=== PATIENT | male | born 1990 | race African-American/Black ===

== ENCOUNTER 2019-04-20 11:14 | Emergency (ER) | payer BC, OTHER ==
[~2019-04-20] VITALS: Ht 177.8 cm; Wt 104.0 kg
[2019-04-20 11:33] VITALS: BP 132/79
[2019-04-20] MEDS ORDERED: TETANUS, DIPHTHERIA, PERTUSSIS VAC/PF 0.5ML (>7YR OLD) IM ONE (14:00)
== END 2019-04-20 15:00 | disposition home or self-care (01) ==
LOC: ER 14:45
DX: S61.216A Laceration without foreign body of right little finger without damage to nail, initial encounter (principal); W26.0XXA Contact with knife, initial encounter; Y93.G3 Activity, cooking and baking; Y92.010 Kitchen of single-family (private) house as the place of occurrence of the external cause; Z23 Encounter for immunization
CPT/HCPCS: 12001; 73140; 90471; 90715; 99283; Z7610

== ENCOUNTER 2019-12-10 19:14 | Inpatient (IN) | payer SELFPAY ==
[~2019-12-10] VITALS: Ht 154.7 cm; Wt 108.4 kg
[2019-12-10] MEDS ORDERED: ONDANSETRON HCL 4MG/2ML INJ IV STA (19:22)
[2019-12-10] MEDS ORDERED: MORPHINE SULFATE 4 MG/ML CPJ (NOT FOR IM USE) IV STA (19:22)
[2019-12-10] MEDS ORDERED: MORPHINE SULFATE 4 MG/ML CPJ (NOT FOR IM USE) IV ONE ×2 (19:26→20:30)
[2019-12-10] MEDS ORDERED: LORAZEPAM 2MG/ML CPJ IV ONE (19:30)
[2019-12-10] MEDS ORDERED: KETAMINE HCL 50 MG/ML 10ML IV ONE (20:30)
[2019-12-10] MEDS ORDERED: PROPOFOL 200MG/20ML VIAL IV ONE (20:30)
[2019-12-10 20:31] LABS: BASOPHILS % 0.8 % (0.0-2.0); EOSINOPHILS % 2.9 % (0.0-5.0); HEMATOCRIT. 44.5 % (42.0-52.0); HEMOGLOBIN. 15.1 g/dL (14.0-18.0); LYMPHOCYTES % 38.8 % (20.0-50.0); MEAN CORPUSCULAR HEMOGLOBIN 30.4 pg (28.0-32.0); MEAN CORPUSCULAR VOLUME 89.7 fL (80.0-94.0); MEAN PLATELET VOLUME 6.7 fl (7.4-10.4); MONOCYTES % 8.5 % (2.0-8.0); PLATELET 318 x1000/uL (130-400); RED BLOOD CELL COUNT 4.96 mill/uL (4.7-6.1); RED CELL DISTRIBUTION WIDTH 13.3 % (11.6-14.6)
[2019-12-10 20:35] LABS: CHLORIDE 109 mEq/L (98-107)
[2019-12-10 20:38] LABS: PROTHROMBIN TIME 10.7 sec (9.6-11.0)
[2019-12-10] MEDS ORDERED: POTASSIUM CHLORIDE 20MEQ TABLET SR PO NR (21:15)
[2019-12-10] MEDS ORDERED: TETANUS, DIPHTHERIA, PERTUSSIS VAC/PF 0.5ML (>7YR OLD) IM ONE (21:15)
[2019-12-10] MEDS ORDERED: ONDANSETRON HCL 4MG/2ML INJ IV PRN (23:15)
[2019-12-10] MEDS ORDERED: IPRATROPIUM/ALBUTEROL 0.5-3(2.5)MG/3ML NEB NEB PRN (23:15)
[2019-12-10] MEDS ORDERED: CLONIDINE 0.1MG TABLET PO PRN (23:15)
[2019-12-10] MEDS ORDERED: DOCUSATE SODIUM 100MG CAPSULE PO PRN (23:15)
[2019-12-10] MEDS ORDERED: ENOXAPARIN 40MG/0.4ML SYR SUBCUT SCH (23:15)
[2019-12-10] MEDS ORDERED: ACETAMINOPHEN 325MG TABLET PO PRN (23:15)
[2019-12-10] MEDS ORDERED: MAGNESIUM/ALUMINUM HYDROXIDE/SIMETHICONE 30ML UDC PO PRN (23:15)
[2019-12-11 00:15] VITALS: BP 151/91
[2019-12-11] MEDS: HYDROCODONE/ACETAMINOPHEN 5/325MG TABLET PO PRN ×6 (01:11→22:27)
[2019-12-11 06:08] LABS: BASOPHILS % 0.5 % (0.0-2.0); EOSINOPHILS % 0.4 % (0.0-5.0); HEMATOCRIT. 38.6 % (42.0-52.0); HEMOGLOBIN. 13.2 g/dL (14.0-18.0); LYMPHOCYTES % 21.8 % (20.0-50.0); MEAN CORPUSCULAR HEMOGLOBIN 30.3 pg (28.0-32.0); MEAN CORPUSCULAR VOLUME 88.6 fL (80.0-94.0); MEAN PLATELET VOLUME 6.6 fl (7.4-10.4); MONOCYTES % 8.4 % (2.0-8.0); NEUTROPHILS % 68.9 % (40.0-76.0); PLATELET 294 x1000/uL (130-400); RED BLOOD CELL COUNT 4.36 mill/uL (4.7-6.1); RED CELL DISTRIBUTION WIDTH 13.2 % (11.6-14.6)
[2019-12-11 06:22] LABS: CHLORIDE 107 mEq/L (98-107)
[2019-12-11 06:47] LABS: LDL CHOLESTEROL 116 mg/dL (5-100)
[2019-12-11 06:48] LABS: HDL CHOLESTEROL 39 mg/dL (40-59)
[2019-12-11] MEDS: ENOXAPARIN 30MG/0.3ML SYR SUBCUT SCH ×2 (08:22→20:48)
[2019-12-11 20:00] VITALS: BP 126/84
[2019-12-12] VITALS: BP 128/85
[2019-12-12 04:00] VITALS: BP 127/83
[2019-12-12] MEDS: HYDROCODONE/ACETAMINOPHEN 5/325MG TABLET PO PRN ×4 (04:58→21:50)
[2019-12-12 08:00] VITALS: BP 148/97
[2019-12-12] MEDS: ENOXAPARIN 30MG/0.3ML SYR SUBCUT SCH ×2 (09:51→20:26)
[2019-12-12 11:01] LABS: BASOPHILS % 0.8 % (0.0-2.0); EOSINOPHILS % 1.1 % (0.0-5.0); HEMATOCRIT. 42.1 % (42.0-52.0); HEMOGLOBIN. 14.4 g/dL (14.0-18.0); LYMPHOCYTES % 20.6 % (20.0-50.0); MEAN CORPUSCULAR HEMOGLOBIN 30.2 pg (28.0-32.0); MEAN CORPUSCULAR VOLUME 88.3 fL (80.0-94.0); MEAN PLATELET VOLUME 6.8 fl (7.4-10.4); MONOCYTES % 12.2 % (2.0-8.0); NEUTROPHILS % 65.3 % (40.0-76.0); PLATELET 298 x1000/uL (130-400); RED BLOOD CELL COUNT 4.77 mill/uL (4.7-6.1); RED CELL DISTRIBUTION WIDTH 13.4 % (11.6-14.6)
[2019-12-12 11:27] LABS: CHLORIDE 103 mEq/L (98-107)
[2019-12-12 12:00] VITALS: BP 139/91
[2019-12-12 16:00] VITALS: BP 123/78
[2019-12-12 20:00] VITALS: BP 134/91
[2019-12-13] VITALS: BP 118/81
[2019-12-13] MEDS: HYDROCODONE/ACETAMINOPHEN 5/325MG TABLET PO PRN ×2 (01:58→14:22)
[2019-12-13 04:00] VITALS: BP 127/90
[2019-12-13] MEDS ORDERED: BACITRACIN 15GM TUBE TOP ONE (06:47)
[2019-12-13] MEDS ORDERED: BUPIVACAINE HCL ONE (06:47)
[2019-12-13] MEDS ORDERED: VANCOMYCIN HCL 1 GM/VIAL ONE (06:48)
[2019-12-13 06:54] LABS: CHLORIDE 103 mEq/L (98-107)
[2019-12-13 07:04] LABS: BASOPHILS % 0.9 % (0.0-2.0); EOSINOPHILS % 1.9 % (0.0-5.0); HEMATOCRIT. 41.9 % (42.0-52.0); HEMOGLOBIN. 14.4 g/dL (14.0-18.0); LYMPHOCYTES % 27.9 % (20.0-50.0); MEAN CORPUSCULAR HEMOGLOBIN 30.1 pg (28.0-32.0); MEAN CORPUSCULAR VOLUME 87.6 fL (80.0-94.0); MEAN PLATELET VOLUME 6.8 fl (7.4-10.4); MONOCYTES % 13.2 % (2.0-8.0); NEUTROPHILS % 56.1 % (40.0-76.0); PLATELET 314 x1000/uL (130-400); RED BLOOD CELL COUNT 4.78 mill/uL (4.7-6.1); RED CELL DISTRIBUTION WIDTH 13.1 % (11.6-14.6)
[2019-12-13] MEDS ORDERED: FENTANYL CITRATE/PF 50MCG/ML 2ML VIAL ONE ×2 (07:37→08:01)
[2019-12-13] MEDS ORDERED: PROPOFOL 200MG/20ML VIAL IV ONE ×2 (07:37→07:42)
[2019-12-13] MEDS ORDERED: ONDANSETRON HCL 4MG/2ML INJ ONE (07:37)
[2019-12-13] MEDS ORDERED: MIDAZOLAM HCL 2 MG/2 ML VIAL ONE (07:37)
[2019-12-13] MEDS ORDERED: DEXAMETHASONE 4MG/ML 1ML VIAL ONE (07:37)
[2019-12-13] MEDS ORDERED: BACITRACIN 50,000 UNITS/VIAL ONE (07:48)
[2019-12-13] MEDS ORDERED: HYDROMORPHONE HCL/PF 2MG/ML (OR) ONE ×2 (07:49→09:22)
[2019-12-13] MEDS ORDERED: HYDROMORPHONE HCL/PF 2MG/ML CPJ IV PRN (08:00)
[2019-12-13] MEDS ORDERED: LABETALOL 5MG/ML SYR 20 MG/4 ML SYRINGE IV PRN (08:00)
[2019-12-13] MEDS ORDERED: LABETALOL HCL 5MG/ML VIAL 20ML IV ONE (08:00)
[2019-12-13] MEDS ORDERED: MEPERIDINE HCL/PF 25MG/ML CPJ IV PRN (08:00)
[2019-12-13] MEDS ORDERED: ONDANSETRON HCL 4MG/2ML INJ IV PRN (08:00)
[2019-12-13] MEDS ORDERED: LIDOCAINE HCL/PF 1% 10 MG/ML 5ML VIAL ONE (08:00)
[2019-12-13] MEDS: ENOXAPARIN 30MG/0.3ML SYR SUBCUT SCH (09:00)
[2019-12-13] MEDS ORDERED: SODIUM CHLORIDE 0.9% 10ML VIAL ONE (09:23)
[2019-12-13 12:00] VITALS: BP 134/78
[2019-12-13 16:00] VITALS: BP 132/77
[2019-12-13] MEDS ORDERED: OXYC-100 MT (17:08)
[2019-12-13] MEDS ORDERED: HYDR-4001 MT (17:08)
[2019-12-13 17:13] VITALS: BP 132/83
== END 2019-12-13 18:00 | disposition home or self-care (01) | DRG 313 ==
LOC: ER 19:14 → CANBEDREQ 21:28 → 6EST 23:01 → ENRESERV 23:34
PROVIDERS: ADMIT Internal Medicine; ATTEND Internal Medicine
PROC: 0QSJXZZ Reposition Right Fibula, External Approach (ICD-10-PCS; 2019-12-10)
PROC: 0QSJ04Z Reposition Right Fibula with Internal Fixation Device, Open Approach (ICD-10-PCS; principal; 2019-12-13)
PROC: 0MQQ0ZZ Repair Right Ankle Bursa and Ligament, Open Approach (ICD-10-PCS; 2019-12-13)
DX: S82.851A Displaced trimalleolar fracture of right lower leg, initial encounter for closed fracture (principal); E87.6 Hypokalemia; S93.439A Sprain of tibiofibular ligament of unspecified ankle, initial encounter; S93.421A Sprain of deltoid ligament of right ankle, initial encounter; Y92.89 Other specified places as the place of occurrence of the external cause; Y99.8 Other external cause status; Y93.55 Activity, bike riding; V18.4XXA Pedal cycle driver injured in noncollision transport accident in traffic accident, initial encounter
CPT/HCPCS: 36415; 73560; 73590; 73600; 73610; 73620; 73700; 76000; 80048; 80053; 80061; 84443; 85025; 90715; 97116; 97162; 97165; 97535; 99285; J1100; J1170; J1650; J2060; J2175; J2250; J2270; J2405; J2704; J3010; J3370; J3490